=== PATIENT | male | born 1980 | race Caucasian/White ===

== ENCOUNTER 2017-06-10 09:48 | Emergency (ER) | payer OTHER ==
[~2017-06-10] VITALS: Ht 177.8 cm; Wt 63.5 kg
== END 2017-06-10 16:16 | disposition home or self-care (01) ==
LOC: ER 09:48
DX: R10.32 Left lower quadrant pain (principal)

== ENCOUNTER 2017-12-25 08:55 | Emergency (ER) | payer OTHER ==
[~2017-12-25] VITALS: Ht 175.3 cm; Wt 63.5 kg
== END 2017-12-25 12:19 | disposition home or self-care (01) ==
LOC: ER 08:55
DX: K52.9 Noninfective gastroenteritis and colitis, unspecified (principal)

== ENCOUNTER 2021-06-28 17:44 | Emergency (ER) | payer OTHER ==
[~2021-06-28] VITALS: Ht 177.8 cm; Wt 63.5 kg
== END 2021-06-28 23:37 | disposition home or self-care (01) ==
LOC: ER 17:44
DX: S00.83XA Contusion of other part of head, initial encounter (principal); S40.011A Contusion of right shoulder, initial encounter; S60.211A Contusion of right wrist, initial encounter; W10.8XXA Fall (on) (from) other stairs and steps, initial encounter; Y93.89 Activity, other specified; Y92.018 Other place in single-family (private) house as the place of occurrence of the external cause; Y99.8 Other external cause status

== ENCOUNTER 2022-05-27 11:16 | Emergency (ER) | payer OTHER ==
[~2022-05-27] VITALS: Ht 177.8 cm; Wt 63.5 kg
== END 2022-05-27 15:12 | disposition home or self-care (01) ==
LOC: ER 11:16
DX: U07.1 COVID-19 (principal); B34.9 Viral infection, unspecified; Z28.311 Partially vaccinated for COVID-19